=== PATIENT | female | born 1975 | race Caucasian/White ===

== ENCOUNTER 2016-05-20 10:55 | Observation (INO) | payer MEDICARE ==
[~2016-05-20] VITALS: Ht 157.5 cm; Wt 66.8 kg
--- NOTE | ~2016-05-20 | CST ---
Cardiac Perfusion Imaging Demographics Patient Name ROSEY Juárez Gender Female Patient Number [id number] Race Visit Number [id number] Ethnicity Corporate ID Room Number 414 Accession Number [id number] Height 62 inches Date of 1975 Weight 135 pounds Age 40 year(s) BSA 1.62 m Referring Physician Shay Kaminski BMI 24.69 kg/m Interpreting [facility] Date of study 05/21/2016 Physician Sara Gonzáles Supervising MD/MLP Shay Kaminski NM Technologist Raphael Neville MD NEEDLE BOARD REPAIRER Ordering Physician Shay Kaminski Stress Kylie Shin MD optics test technician Stress ECG Reading Shay Kaminski Nurse Analy Coleman Physician The procedure was explained in detail to the patient. Risks, complications and alternative treatments were reviewed. Written consent was obtained. Medications Reviewed with Patient prior to Procedure. Procedure Procedure Type: Nuclear Stress Test:Pharmacological, Lexiscan Procedure Start time: 05/21/2016 10:15 Indications: Chest pain, Tobacco use-current and Family history of coronary artery disease. Risk Factors The patient risk factors include:Current/Recent(w/in 1 year) tobacco use, family history of premature CAD and chronic lung disease. Conclusions Summary Perfusion Images: The overall quality of the study is good. Left ventricular cavity is noted to be normal on the stress and rest studies. There is no evidence of abnormal lung activity. The right ventricle is not visualized and cannot be assessed. Stress SPECT images demonstrate homogenous tracer distribution throughout the myocardium. Rest SPECT images demonstrate homogenous tracer distribution throughout the myocardium. Gated SPECT imaging reveals normal myocardial thickening and wall motion. The left ventricular ejection fraction was calculated to be >75%. Impression 1. Myocardial perfusion imaging is normal. 2. Overall left ventricular systolic function was normal without regional wall motion abnormalities. 3. There are no previous studies for comparison. Stress Protocols Resting ECG NRS Resting HR:64 bpm Resting BP:112/76 mmHg Stress Protocol:Pharmacologic Predicted HR: 179 bpm Test duration: 06:00 min Reason for termination:Infusion complete ECG Findings No ECG changes suggestive of ischemia. Arrhythmias No rhythm abnormality. Symptoms Chest pressure 4/10 Shortness of breath. Dizziness. Complications Procedure complication: None. Stress Interpretation ECG portion of stress test is negative for ischemia by diagnostic criteria. Imaging Results Summed scores - Summed stress score: 0 - Summed rest score: 0 - Summed difference score: 0 Stress ejection Ejection fraction:77 % EDV :83 ml ESV :19 ml Stroke volume :64 ml LV mass :121 gr Imaging Protocols Rest Stress Isotope:Tc99m Myoview IV Isotope: Tc99m Myoview IV Isotope dose:10.5 mCi Isotope dose:31.1 mCi Date:05/21/2016 08:45 Date:05/21/2016 10:15 Technique: SPECT Technique: Gated Supine SPECT Supine IV remains in place after procedure. Scan Time:30 minutes post injection Scan Time:15-30 minutes post injection Procedure Medications - Regadenoson (Lexiscan) 0.4 mg IV over 10-15 sec. I.V. 0.4 mg. - Regadenoson (Lexiscan) 0.4 mg IV over 10-15 sec. I.V. 0.4 . Medications administered per verbal order and read back to physician prior to administration. Medical History Admission Data Admission date: 05/20/2016 Admission Time: 14:20 Hospital Status: Inpatient. Signatures
[~2016-05-20 10:55] MED LIST: ALLERGY D-12 T1 EACH PO; BENZONATATE200 MG PO; DEPAKOTE ER500 MG PO; DULCOLAX-DPS10 MG PR; IMITREX DP6 MG/0.5 M SQ; KLOR-CON M2020 ME1 PO; LAMICTAL DPS25 MG PO; LASIX DPS40 MG PO; MELATONIN10 M2 PO; NAPROSYN DPS500 MG PO; TOPAMAX200 MG PO; VITAMIN B-121000 MCG PO; ZONEGRAN100 MG PO; ZYRTEC DPS10 MG PO
--- NOTE | 2016-05-20 16:41 | ER ---
ADMIT: 05/20/2016 RM/LOC: ER [facility] MR#: [id number] [address] [address] ROSEYMARIAHCARTER M [address] [facility] [place] [address] Emergency Room Report SEX: F AGE: 40 : 1975 DATE: 05/20/2016 A 40-year-old white female coming in with chest pain, radiating to her left arm, up into her neck, she has significant family history of it. Her mother had NV in her 40s, mother also had a bypass. This patient has had a gastric bypass in the past. She also has seizure disorder, thyroid, some anxiety, depression, and multiple surgeries. At this time, CBC, Chemistry, troponin is negative. Nitroglycerin took her pain away. We gave her some nitroglycerin paste, and then she will be admitted as a rule out by Dr. Day. CONDITION ON DISCHARGE: Serious, but stable. Jon Armstrong MD/ bryanna JOB #: [id number] CC: Jon Armstrong MD, Attending Physician
--- NOTE | 2016-05-21 10:47 | HP ---
ADMIT: 05/20/2016 RM/LOC: 414 [facility] MR#: [id number] 2620 [facility] [address] [place] [id number] CARTER VILCHIS [address] [facility] [place] [address] History and Physical SEX: F AGE: 40 : 1975 DATE OF SERVICE: CHIEF COMPLAINT: Chest pain. HISTORY OF PRESENT ILLNESS: Ms. Vilchis is a 40-year-old female. She has a past medical history significant for multiple medical problems who presented with a complaint of chest pain. She reports that the chest pain started while at rest, notes that it was on the left side of her chest, radiated to her shoulder as well as to her neck. Reports that it is not associated with any diaphoresis. She has not had any nausea, she has not had any heartburn. She reports she not really ever had pain like this before, although on further questioning, she says that she did have a stress test about 15 years ago which she was told was okay. She notes that otherwise she has not been having any chest pain with exertion. She denies any new lower extremity edema, really has no other new complaints. PAST MEDICAL HISTORY: Significant for: 1. History of Consuelo-en-Y gastric bypass. 2. History of previous sleep apnea, now resolved. 3. Status post hysterectomy. 4. History of seizures. 5. History of pseudotumor cerebri, followed by Dr. Saba. 6. Status post cholecystectomy. 7. Status post appendectomy. 8. Status post tonsillectomy. 9. Status post sinus surgery. 10.History of hypothyroidism. 11.History of asthma. 12.History of depression. 13.History of anxiety. 14.History of peripheral neuropathy, which she reports has not been diagnosed. 15.History of arthritis. 16.History of migraines. FAMILY HISTORY: Positive for heart disease in her mom in her early 40s. SOCIAL HISTORY: She does report that she smokes about 5 cigarettes a day, has since age 14 although was able to quit for approximately 2 years previously. She does not use any alcohol. She lives with her parents. REVIEW OF SYSTEMS: Obtained was otherwise essentially negative. MEDICATIONS CURRENTLY: I am not sure if this list is completely accurate but the most recent list I could find was: 1. Lasix 40 mg p.o. every other day. 2. Topamax 200 mg p.o. twice daily. 3. Naprosyn 500 mg p.o. b.i.d. 4. Protonix 40 mg p.o. b.i.d. ADMIT: 05/20/2016 RM/LOC: 414 [facility] MR#: [id number] [address] [place] [id number] ROSEYCARTER PEREIRA [address] [place] [address] History and Physical SEX: F AGE: 40 : 1975 5. Premarin 1.25 p.o. daily. 6. Valproic acid 500 mg one in the morning, 2 at bedtime. 7. Vitamin D 5000 units daily. 8. Xanax 1 mg in a.m., half at noon, and 1 at bedtime. 9. Ibuprofen p.r.n. 10.Zonisamide 100 mg two tabs p.o. b.i.d. 11.Lamotrigine 75 mg p.o. at bedtime. 12.Cymbalta 60 mg p.o. b.i.d. 13.Melatonin 10 mg p.o. daily. 14.Tizanidine 4 mg 2 tabs in the morning, 1 at noon, and 2 at bedtime. 15.Levothyroxine 100 mcg p.o. daily. 16.Cetirizine 10 mg p.o. at bedtime. 17.Singulair 10 mg p.o. daily. 18.Vitamin B12 shots. 19.Tessalon Perles p.r.n. 20.Imitrex. 21.Relpax. 22.Flonase. 23.Zyrtec-D. 24.KCl 40 mEq p.o. daily. ALLERGIES: UNKNOWN TO ME AT THIS TIME. PHYSICAL EXAM: NECK: Supple. HEENT: She has dry mucous membranes. Pupils are equal, round, reactive. Oropharynx has dry mucous membranes. HEART: Normal rate with a regular rhythm. She does have some tenderness to palpation on the left side of her chest. LUNGS: Clear to auscultation. ABDOMEN: Soft. Bowel sounds are present. Nontender and nondistended. EXTREMITIES: Have no evidence of edema. She does move her upper and lower extremities although her lower extremity movement seems to be a little bit decreased. ASSESSMENT/PLAN: ADMIT: 05/20/2016 RM/LOC: 414 [facility] MR#: [id number] [address] [place] [id number] CARTER VILCHIS [address] [place] [address] History and Physical SEX: F AGE: 40 : 1975 1. Chest pain. At this time it does appear to be lower risk. We will check 3 sets of cardiac enzymes and do a stress test in the morning. We will check fasting lipids in the morning. Encourage patient to quit smoking. 2. Nicotine dependence. Encouraged her on smoking cessation. 3. History of gastric bypass. 4. Neuropathy. 5. Hypokalemia. 6. Anxiety. 7. Seizure disorder. 8. Hypothyroidism. Otherwise we will plan to monitor closely overnight and try to get her home medication list reconciled. Qi Day MD/ bryanna JOB #: [id number] CC: Qi Day MD, Attending Physician Qi Day MD, Family Physician
[2016-05-22] MEDS ORDERED: MOTRIN-DPS800 MG PO (14:37)
[2016-05-22] MEDS ORDERED: LASIX DPS20 MG PO (14:37)
[2016-05-22] MEDS ORDERED: MAG-OX400 MG PO (14:38)
[2016-05-22] MEDS ORDERED: MICRO-K DPS10 MEQ PO (14:38)
[2016-05-22] MEDS ORDERED: COLESTID1 GM PO (14:39)
[2016-05-22] MEDS ORDERED: DESYREL DPS100 MG PO (14:40)
[2016-05-22] MEDS ORDERED: FLONASE 0.05% D16 GM NS (14:40)
[2016-05-22] MEDS ORDERED: ZANAFLEX4 MG PO ×2 (14:41→14:42)
[2016-05-22] MEDS ORDERED: TOPAMAX50 MG PO (14:41)
[2016-05-22] MEDS ORDERED: MONTELUKAST SOD10 MG PO (14:42)
[2016-05-22] MEDS ORDERED: PROTONIX40 MG PO (14:42)
[2016-05-22] MEDS ORDERED: SYNTHROID DPS0.1 MG PO (14:43)
[2016-05-22] MEDS ORDERED: VITAMIN D35000 UNI1 PO (14:43)
[2016-05-22] MEDS ORDERED: CALTRATE-600 D600 MG PO (14:44)
[2016-05-22] MEDS ORDERED: XANAX DPS1 MG PO (14:45)
[2016-05-22] MEDS ORDERED: CYANOCOBAL1000 MCG/1 IM (14:46)
[2016-05-22] MEDS ORDERED: ESTAZOLAM2 MG PO (14:46)
[2016-05-22] MEDS ORDERED: CYMBALTA60 MG PO (14:46)
[2016-05-22] MEDS ORDERED: [UNRECOGNIZED DRUG - OTHER] PO (14:47)
[2016-05-22] MEDS ORDERED: RELPAX40 MG PO (14:47)
[2016-05-22] MEDS ORDERED: BUSPAR5 MG PO (14:48)
[2016-05-22] MEDS ORDERED: ALLEGRA DPS180 MG PO (14:48)
[2016-05-22] MEDS ORDERED: OXY IR DPS5 MG PO (14:48)
--- NOTE | 2016-06-01 11:48 | DS ---
ADMIT: 05/20/2016 RM/LOC: 414 [facility] MR#: [id number] [address] [address] ROSEYCARTER HART [address] [facility] [place] [address] Discharge Summary SEX: F AGE: 40 : 1975 ADMISSION DATE: 05/20/2016 DISCHARGE DATE: 05/21/2016 DISCHARGE DIAGNOSES: 1. Chest pain atypical. 2. Negative stress test. 3. Nicotine dependence. 4. Hypothyroidism. 5. History of seizure disorder. 6. History of morbid obesity status post Consuelo-en-Y gastric bypass. 7. Depression. 8. Peripheral neuropathy. 9. Migraines. 10.Arthritis. HOSPITAL COURSE: The patient was admitted, had 3 sets of serial enzymes which were all negative. Also had EKG which was normal. Her chest pain was somewhat reproducible on palpation of her sternal chest. She did undergo a stress test the next morning, which also was negative. I did discuss the case with her mother's intake coordinator as the family was concerned about this, and noted that at this time it was felt that she was low risk of acute coronary syndrome. The plan was to follow up as an outpatient with Dr. Ruiz. She also was directed about the importance of smoking cessation. I suspect once again this is musculoskeletal pain. So, therefore, she was discharged home with a new prescription for Oxycodone 5/325 one p.o. q.4 hours p.r.n. with #10. She also was prescribed to go resume all of her home medications, and otherwise follow up with Dr. Peck p.r.n., follow up with Dr. Ruiz in one week. Qi Day MD/ laurent JOB #: [id number] CC: Qi Day MD, Attending Physician Qi Day MD, Family Physician MD Eliecer Pinto MD
== END 2016-05-21 16:14 | disposition home or self-care (01) ==
LOC: ER 10:55 → 4PCU 14:20
PROVIDERS: ADMIT Internal Medicine
DX: R07.89 Other chest pain (principal); E03.9 Hypothyroidism, unspecified; F32.9 Major depressive disorder, single episode, unspecified; M19.90 Unspecified osteoarthritis, unspecified site; E87.6 Hypokalemia; G43.909 Migraine, unspecified, not intractable, without status migrainosus; F41.9 Anxiety disorder, unspecified; G62.9 Polyneuropathy, unspecified; Z90.49 Acquired absence of other specified parts of digestive tract; Z98.890 Other specified postprocedural states; Z87.09 Personal history of other diseases of the respiratory system; Z79.899 Other long term (current) drug therapy; Z98.84 Bariatric surgery status

== ENCOUNTER 2016-05-23 23:59 | Emergency (ER) | payer MEDICARE ==
[~2016-05-23 23:59] MED LIST changes: +ALLEGRA DPS180 MG PO; +BUSPAR5 MG PO; +CALTRATE-600 D600 MG PO; +COLESTID1 GM PO; +CYANOCOBAL1000 MCG/1 IM; +CYMBALTA60 MG PO; +DESYREL DPS100 MG PO; +ESTAZOLAM2 MG PO; +FLONASE 0.05% D16 GM NS; +LASIX DPS20 MG PO; +MAG-OX400 MG PO; +MICRO-K DPS10 MEQ PO; +MONTELUKAST SOD10 MG PO; +MOTRIN-DPS800 MG PO; +OXY IR DPS5 MG PO; +PROTONIX40 MG PO; +RELPAX40 MG PO; +SYNTHROID DPS0.1 MG PO; +TOPAMAX50 MG PO; +VITAMIN D35000 UNI1 PO; +XANAX DPS1 MG PO; +ZANAFLEX4 MG PO; +[UNRECOGNIZED DRUG - OTHER] PO
--- NOTE | 2016-05-24 19:08 | ER ---
ADMIT: 05/23/2016 RM/LOC: ER [facility] MR#: [id number] [address] [address] ROSEYAVTARLeah Juárez [address] [place] [address] Emergency Room Report SEX: F AGE: 40 : 1975 DATE: 05/23/2016 HISTORY OF PRESENT ILLNESS: The patient is a 40-year-old female with past medical history of asthma, hypothyroidism, neuropathy, came to the ER with chief complaint of left leg pain for 1 day and ecchymosis in the area which she could not recall what caused it and she could not recall any trauma. The patient also complains of right anterior lower chest pain which is sharp, and she had it today all day, and increases with deep inspiration and palpation of the area. The patient has been recently followed up for cardiac problems, and had a stress test, and cardiac enzymes were all negative 3 days ago. In the ER, the patient was in no obvious distress or pain. EKG was negative for ST or T changes or Q-waves or arrhythmia. Cardiac enzymes are negative. Chest x- ray is negative. PHYSICAL EXAMINATION: HEAD AND NECK: The patient is noncontributory. CHEST: Clear to auscultation bilaterally. The patient had right anterior lower chest tenderness on palpation without any crepitations. HEART: Normal S1, S2. ABDOMEN: Soft and nontender. EXTREMITIES: There is small ecchymosis on the medial part of the left leg with mild tenderness over the area. The circumference of both legs are equal, and in dorsiflexion of the left foot, there is no increase in tenderness or pain. Peripheral pulses are normal bilaterally. Doppler exam of the lower extremity was negative for DVT. Pain was controlled. The patient was re- examined and was in no distress or pain. DISPOSITION: The patient was discharged home to be followed up with primary care doctor as needed. DIAGNOSES: 1. Left leg pain. 2. Chest wall pain, resolved. Adalberto Romero MD/ bryanna JOB #: [id number] CC: Adalberto Romero MD, Attending Physician Eliecer Peck MD, Family Physician
== END 2016-05-24 04:01 | disposition home or self-care (01) ==
LOC: ER 23:59
DX: M79.81 Nontraumatic hematoma of soft tissue (principal); R07.89 Other chest pain; J45.909 Unspecified asthma, uncomplicated; E03.9 Hypothyroidism, unspecified; Z88.8 Allergy status to other drugs, medicaments and biological substances; Z79.899 Other long term (current) drug therapy

== ENCOUNTER 2016-06-18 02:25 | Emergency (ER) | payer MEDICARE ==
--- NOTE | 2016-06-18 19:14 | ER ---
ADMIT: 06/18/2016 RM/LOC: ER [facility] MR#: [id number] [address] [address] ROSEYMARIAHCARTER M [address] [place] [address] Emergency Room Report SEX: F AGE: 41 : 1975 DATE: 06/18/2016 Patient is a 41-year-old female, allegedly with past medical history of seizure disorder, who was on valproic acid, but is not compliant with the medication and stopped using it by herself for the last few years. The patient was brought to the ER with alleged seizure-like activity which allegedly was when patient was sitting on a chair. The patient had generalized body shaking for few minutes, and was confused after that. No fall or head trauma. In the ER, the patient is mildly confused, but answers the questions, opens eyes, and follows commands. There are no obvious signs of trauma, the patient has stable vitals, prolactin level was normal. Head and neck, there are no obvious signs of trauma. Chest is clear bilaterally. Normal S1, S2. Abdomen is soft. There is no spinal tenderness or step-offs. There is no swelling, there is no tenderness on extremities. test was negative. CK was 38, WBC of 5.2, and hemoglobin of 10.3. The sodium level was 145 with potassium of 3.4. Glucose level was 138, creatinine of 2.8. The patient has not been compliant with valproic acid, and the valproic acid 250 mg q.12. the patient was discharged to home to be followed up with the primary doctor as needed. Adalberto Romero MD/ bryanna JOB #: [id number] CC: Adalberto Romero MD, Attending Physician Michael Hanley MD, Family Physician
== END 2016-06-18 05:01 | disposition home or self-care (01) ==
LOC: ER 02:25
DX: F32.9 Major depressive disorder, single episode, unspecified (principal); F41.9 Anxiety disorder, unspecified; Z91.14 Patient's other noncompliance with medication regimen; Z90.710 Acquired absence of both cervix and uterus; Z90.49 Acquired absence of other specified parts of digestive tract